=== PATIENT | female | born 1995 | race African-American/Black ===

== ENCOUNTER 2024-12-27 20:41 | Emergency (ER) | payer OTHER ==
[~2024-12-27] VITALS: Ht 160 cm; Wt 48.6 kg
[2024-12-27 20:48] VITALS: TEMP 97.7
[2024-12-27 22:41] LABS: CALCIUM, TOTAL 9.0 mg/dL (8.8-10.5); CREATININE 0.91 mg/dL (0.60-1.30); GLOMERULAR FILTR. RATE CALC > 60 mL/min (>60); GLUCOSE,RANDOM 73 mg/dL (70-110); SODIUM SERUM 143 mmol/L (136-145); UREA NITROGEN, BLOOD 11 mg/dL (7-18)
[2024-12-27 22:43] LABS: PLATELET COUNT (AUTO) 161 K/uL (150-450); RED BLOOD CELL COUNT(AUTO) 4.89 MIL/uL (4.00-5.20); RED CELL DISTRIBUTION WIDTH 12.9 % (11.5-14.5); WHITE BLOOD COUNT (AUTO) 4.5 K/uL (4.5-11.0)
[2024-12-28 00:49] LABS: APPEARANCE,URINE CLEAR (CLEAR); GLUCOSE, URINE (UA) NEGATIVE (NEGATIVE); LEUKOCYTE ESTERASE ,URINE NEGATIVE (NEGATIVE); NITRATE,URINE NEGATIVE (NEGATIVE); OCCULT BLOOD,URINE NEGATIVE (NEGATIVE); SPECIFIC GRAVITIY, URINE 1.016 (1.003-1.030)
[2024-12-28 01:11] VITALS: BP 102/65; PULSE 88; RESP 15; O2SAT 98
== END 2024-12-28 01:11 | disposition home or self-care (01) ==
LOC: EMS 20:41
DX: R42 Dizziness and giddiness (principal); F41.9 Anxiety disorder, unspecified; F32.A Depression, unspecified; G89.29 Other chronic pain; F12.90 Cannabis use, unspecified, uncomplicated
CPT/HCPCS: 80048; 81003; 84703; 85025; 93005; 99284